=== PATIENT | male | born 1935 | race Caucasian/White ===

== ENCOUNTER 2020-07-08 17:01 | Inpatient (IN) ==
[2020-07-08] MEDS ORDERED: Isovue-370 500 ML BOTTLE IVP ONE (18:19)
[2020-07-08 18:52] LABS: Basophils % 0.5 %; Eosinophils % 0.2 %; Hematocrit 33.6 % (37.5-50.1); Hemoglobin 9.7 g/dL (12.9-16.9); Immature Granulocytes % 0.6 % (0-4); Lymphocytes # 0.7 K/mcL (0.6-4.6); Lymphocytes % 11.3 %; Mean Corpuscular HGB Conc 28.9 g/dL (31.6-35.5); Mean Corpuscular Hemoglobin 21.9 pg (28.0-33.3); Mean Platelet Volume 9.1 fL (9.4-12.4); Monocytes # 0.8 K/mcL (0.0-1.3); Monocytes % 12.3 %; Neutrophils # 4.7 K/mcL (1.6-8.9); Platelet Count 205 K/mcL (140-400); Red Blood Count 4.42 M/mcL (4.19-5.50); Red Cell Distribution Width 22.4 % (11.5-14.5); Segmented Neutrophils % 75.1 %; White Blood Count 6.2 K/mcL (4.3-11.1)
[2020-07-08 18:59] LABS: INR 2.1; Prothrombin Time 23.4 Seconds (9.4-12.1)
[2020-07-08 19:02] LABS: Activated Partial Thrombo Time 40.1 Seconds (26.0-36.0)
[2020-07-08 19:14] LABS: Polychromasia 1+ (Not Present)
[2020-07-08 19:15] LABS: Acanthocytes 1+ (Not Present); Hypochromasia Present (Not Present)
[2020-07-08 19:24] LABS: Alanine Aminotransferase 18 Units/L (7-52); Albumin 3.4 g/dL (3.5-5.7); Alkaline Phosphatase 168 Units/L (34-104); Aspartate Amino Transferase 17 Units/L (13-39); BUN/Creatinine Ratio 25 (6-26); Bilirubin,Total 2.3 mg/dL (0.3-1.0); Blood Urea Nitrogen 26 mg/dL (8-23); Calcium 9.6 mg/dL (8.6-10.3); Carbon Dioxide 22 mEq/L (23-29); Chloride 105 mEq/L (98-107); Globulin 3.3 g/dL (2.4-3.5); Glucose 93 mg/dL (70-105); Osmolality,Calculated 290 (280-300); Potassium 4.4 mEq/L (3.5-5.1); Sodium 138 mEq/L (136-145); Total Protein 6.7 g/dL (6.4-8.9); Troponin I 0.03 ng/mL (< 0.04); eGFR For African Americans > 60 (> 60); eGFR For Non-African Americans > 60 (> 60)
[2020-07-08] MEDS ORDERED: Azithromycin 500 MG in 0.9 % Sodium Chloride 250 ML IVPB ONE (20:19)
[2020-07-08] MEDS ORDERED: cefTRIAXone 1,000 MG in Water for inj. (sterile) 10 ML IVP ONE (20:19)
[2020-07-08] MEDS ORDERED: Furosemide 40 MG/4 ML VIAL IVP ONE (20:25)
[2020-07-08] MEDS ORDERED: Naloxone 0.4 MG/ML INJ IVP PRN (22:16)
[2020-07-08] MEDS ORDERED: Ondansetron 4 MG/2 ML VIAL IVP PRN (22:16)
[2020-07-08] MEDS ORDERED: Acetaminophen 325 MG TABLET PO PRN (22:16)
[2020-07-08] MEDS ORDERED: Melatonin 3 MG TABLET PO PRN (22:16)
[2020-07-08] MEDS ORDERED: Perflutren Lipid Microsphere 1.3 ML in 0.9 % Sodium Chloride 8.7 ML IVP PRN (22:21)
[2020-07-09 00:52] LABS: Mean Corpuscular HGB Conc 28.7 g/dL (31.6-35.5); Mean Platelet Volume 8.9 fL (9.4-12.4)
[2020-07-09 00:53] LABS: Hematocrit 33.4 % (37.5-50.1); Hemoglobin 9.6 g/dL (12.9-16.9); Mean Corpuscular Hemoglobin 22.4 pg (28.0-33.3); Mean Corpuscular Volume 77.9 fL (83.0-100.0); Platelet Count 199 K/mcL (140-400); Red Blood Count 4.29 M/mcL (4.19-5.50); Red Cell Distribution Width 22.3 % (11.5-14.5); White Blood Count 5.9 K/mcL (4.3-11.1)
[2020-07-09 01:11] LABS: Albumin 3.2 g/dL (3.5-5.7); Bilirubin,Direct 0.6 mg/dL (0.0-0.2); Bilirubin,Indirect 1.3 mg/dL (0.0-1.0); Bilirubin,Total 1.9 mg/dL (0.3-1.0); Globulin 3.2 g/dL (2.4-3.5); Total Protein 6.4 g/dL (6.4-8.9)
[2020-07-09 01:13] LABS: % Iron Saturation 8 % (20-55); Iron 21 mcg/dL (65-175); Transferrin 200 mg/dL (203-362)
[2020-07-09 01:14] LABS: BUN/Creatinine Ratio 25 (6-26); Blood Urea Nitrogen 28 mg/dL (8-23); Calcium 9.2 mg/dL (8.6-10.3); Carbon Dioxide 24 mEq/L (23-29); Chloride 107 mEq/L (98-107); Chol/HDL Ratio 2.4 (0-4.9); Cholesterol 87 mg/dL (< 200); Glucose 98 mg/dL (70-105); HDL Cholesterol 36 mg/dL (40-59); LDL Cholesterol,Calculated 41 mg/dL (< 100); Magnesium 1.9 mg/dL (1.6-2.6); Osmolality,Calculated 293 (280-300); Phosphorous 3.8 mg/dL (2.7-4.5); Potassium 4.1 mEq/L (3.5-5.1); Sodium 139 mEq/L (136-145); Triglycerides 49 mg/dL (< 150); eGFR For African Americans > 60 (> 60); eGFR For Non-African Americans > 60 (> 60)
[2020-07-09 01:28] LABS: Thyroid Stimulating Hormone 1.341 mcIU/mL (0.340-5.600)
[2020-07-09 01:32] LABS: Ferritin 67 ng/mL (20-250)
[2020-07-09] MEDS ORDERED: Iron Sucrose Complex 400 MG in 0.9 % Sodium Chloride 250 ML IVPB ONE (07:09)
[2020-07-09] MEDS ORDERED: Furosemide 40 MG/4 ML VIAL IVP SCH (08:00)
[2020-07-09] MEDS: Furosemide 40 MG/4 ML VIAL IVP SCH ×2 (08:13→16:50)
[2020-07-09] MEDS: Doxycycline 100 MG CAPSULE PO SCH ×2 (08:14→20:10)
[2020-07-09] MEDS: *HR* Enoxaparin 120 MG/0.8 ML SYRINGE SQ SCH (16:50)
[2020-07-09] MEDS: FluocinoNIDE 0.05% CRM 15 GM TUBE TP SCH ×2 (18:46→21:56)
[2020-07-09] MEDS: Melatonin 3 MG TABLET PO SCH (21:53)
[2020-07-10 03:17] LABS: Basophils % 0.6 %; Hemoglobin 9.2 g/dL (12.9-16.9); Immature Granulocytes % 0.4 % (0-4)
[2020-07-10 03:19] LABS: Eosinophils # 0.1 K/mcL (0.0-0.6); Hematocrit 32.1 % (37.5-50.1); Lymphocytes # 0.8 K/mcL (0.6-4.6); Lymphocytes % 12.4 %; Mean Corpuscular HGB Conc 28.7 g/dL (31.6-35.5); Mean Corpuscular Hemoglobin 22.1 pg (28.0-33.3); Monocytes % 13.9 %; Neutrophils # 4.9 K/mcL (1.6-8.9); Nucleated Red Blood Cells 0.3 /100 WBC (0); Platelet Count 194 K/mcL (140-400); Red Blood Count 4.17 M/mcL (4.19-5.50); Red Cell Distribution Width 22.1 % (11.5-14.5); Segmented Neutrophils % 71.7 %; White Blood Count 6.8 K/mcL (4.3-11.1)
[2020-07-10 03:36] LABS: BUN/Creatinine Ratio 26 (6-26); Blood Urea Nitrogen 27 mg/dL (8-23); Calcium 8.7 mg/dL (8.6-10.3); Carbon Dioxide 26 mEq/L (23-29); Chloride 105 mEq/L (98-107); Glucose 86 mg/dL (70-105); Osmolality,Calculated 292 (280-300); Potassium 3.5 mEq/L (3.5-5.1); Sodium 139 mEq/L (136-145); eGFR For African Americans > 60 (> 60); eGFR For Non-African Americans > 60 (> 60)
[2020-07-10 03:40] LABS: Anisocytosis 2+ (Not Present); Microcytosis Present (Not Present); Platelet Estimate Normal (Normal); Poikilocytosis 2+ (Not Present); Schistocytes 1+ (Not Present); Target Cells 1+ (Not Present)
[2020-07-10] MEDS: *HR* Enoxaparin 120 MG/0.8 ML SYRINGE SQ SCH ×2 (05:15→16:08)
[2020-07-10] MEDS: Folic Acid 1 MG TABLET PO SCH (08:25)
[2020-07-10] MEDS: Furosemide 40 MG/4 ML VIAL IVP SCH ×2 (08:26→16:09)
[2020-07-10] MEDS: Metoprolol XL (24 HR) Succ 25 MG TAB.ER.24H PO SCH (08:26)
[2020-07-10] MEDS: Doxycycline 100 MG CAPSULE PO SCH ×2 (08:26→20:49)
[2020-07-10] MEDS: FluocinoNIDE 0.05% CRM 15 GM TUBE TP SCH ×4 (10:31→20:48)
[2020-07-10] MEDS: Melatonin 3 MG TABLET PO SCH (20:48)
[2020-07-11 01:24] LABS: Alanine Aminotransferase 14 Units/L (7-52); Albumin 2.9 g/dL (3.5-5.7); Alkaline Phosphatase 148 Units/L (34-104); Aspartate Amino Transferase 14 Units/L (13-39); BUN/Creatinine Ratio 26 (6-26); Bilirubin,Total 1.3 mg/dL (0.3-1.0); Blood Urea Nitrogen 25 mg/dL (8-23); Calcium 8.6 mg/dL (8.6-10.3); Carbon Dioxide 24 mEq/L (23-29); Chloride 105 mEq/L (98-107); Glucose 90 mg/dL (70-105); Osmolality,Calculated 292 (280-300); Potassium 3.5 mEq/L (3.5-5.1); Sodium 139 mEq/L (136-145); Total Protein 5.9 g/dL (6.4-8.9); eGFR For African Americans > 60 (> 60); eGFR For Non-African Americans > 60 (> 60)
[2020-07-11] MEDS: *HR* Enoxaparin 120 MG/0.8 ML SYRINGE SQ SCH ×2 (05:42→16:53)
[2020-07-11] MEDS: Folic Acid 1 MG TABLET PO SCH (07:36)
[2020-07-11] MEDS: Doxycycline 100 MG CAPSULE PO SCH ×2 (07:36→20:23)
[2020-07-11] MEDS: Metoprolol XL (24 HR) Succ 25 MG TAB.ER.24H PO SCH (07:36)
[2020-07-11] MEDS: Furosemide 40 MG/4 ML VIAL IVP SCH ×2 (07:37→16:53)
[2020-07-11] MEDS: FluocinoNIDE 0.05% CRM 15 GM TUBE TP SCH ×4 (07:37→20:23)
[2020-07-11] MEDS: Melatonin 3 MG TABLET PO SCH (20:23)
[2020-07-12 05:14] LABS: INR 1.7; Prothrombin Time 19.5 Seconds (9.4-12.1)
[2020-07-12 05:33] LABS: Albumin 2.9 g/dL (3.5-5.7); BUN/Creatinine Ratio 32 (6-26); Blood Urea Nitrogen 28 mg/dL (8-23); Calcium 8.4 mg/dL (8.6-10.3); Carbon Dioxide 27 mEq/L (23-29); Chloride 103 mEq/L (98-107); Globulin 2.9 g/dL (2.4-3.5); Glucose 82 mg/dL (70-105); Lactate Dehydrogenase 188 Units/L (140-271); Osmolality,Calculated 289 (280-300); Potassium 3.5 mEq/L (3.5-5.1); Sodium 137 mEq/L (136-145); Total Protein 5.8 g/dL (6.4-8.9); eGFR For African Americans > 60 (> 60); eGFR For Non-African Americans > 60 (> 60)
[2020-07-12] MEDS: FluocinoNIDE 0.05% CRM 15 GM TUBE TP SCH ×5 (09:20→23:13)
[2020-07-12] MEDS: Furosemide 40 MG/4 ML VIAL IVP SCH (09:20)
[2020-07-12] MEDS: Doxycycline 100 MG CAPSULE PO SCH (09:20)
[2020-07-12] MEDS: Metoprolol XL (24 HR) Succ 25 MG TAB.ER.24H PO SCH (09:20)
[2020-07-12] MEDS: Folic Acid 1 MG TABLET PO SCH (09:20)
[2020-07-12 17:54] LABS: Glucose,Pleural Fluid 95 mg/dL (No Ref Range); LDH,Pleural Fluid 69 Units/L (No Ref Range); Total Protein,Pleural Fluid < 2.0 g/dL
[2020-07-12] MEDS ORDERED: Furosemide 40 MG TABLET PO SCH (18:00)
[2020-07-12 18:02] LABS: RBC,Pleural Fluid < 2000 RBC/mcL
[2020-07-12 19:31] LABS: Appearance of Pleural Fl Clear (Clear)
[2020-07-12 19:32] LABS: Basophils,Pleural Fluid 0 %; Eosinophils,Pleural Fluid 0 %
[2020-07-12] MEDS: Apixaban 5 MG TABLET PO SCH (22:57)
[2020-07-13 06:50] VITALS: BP 118/59
[2020-07-13] MEDS: Folic Acid 1 MG TABLET PO SCH (07:35)
[2020-07-13] MEDS: Metoprolol XL (24 HR) Succ 25 MG TAB.ER.24H PO SCH (07:36)
[2020-07-13] MEDS: Apixaban 5 MG TABLET PO SCH (07:36)
[2020-07-13] MEDS: FluocinoNIDE 0.05% CRM 15 GM TUBE TP SCH (07:44)
[2020-07-13] MEDS ORDERED: Furosemide 40 MG TABLET PO SCH (09:00)
== END 2020-07-13 13:00 | disposition home health service (06) | DRG 291 ==
LOC: 2ANU 17:01 → EMEROOARM 17:01 → SUATTDRO 21:21 → 2ANU 21:52
PROVIDERS: ADMIT Internal Medicine; ATTEND Internal Medicine